=== PATIENT | male | born 1980 | race Caucasian/White ===

== ENCOUNTER 2018-12-12 16:31 | Emergency (ER) | payer OTHER ==
[2018-12-12] MEDS ORDERED: DIPH/PERTUSS(ACELL)/TETANUS VAC/PF 0.5 ML SYR (>=10YO) IM ONE (17:10)
[2018-12-12] MEDS ORDERED: LIDOCAINE 1% INJ-PF (10 MG/ML) 30 ML SDV INJ ONE (17:10)
--- NOTE | 2018-12-12 17:16 | ER Document Report ---
ED General - General Chief Complaint: Laceration Stated Complaint: THUMB LACERATION Time Seen by Provider: 12/12/18 17:01 Mode of Arrival: Ambulatory Information source: Patient TRAVEL OUTSIDE OF THE [place] IN LAST 30 DAYS: No - HPI Patient complains to provider of: Left thumb laceration Onset: Just prior to arrival Onset/Duration: Sudden Quality of pain: Sharp Severity: Mild Pain Level: 2 Context: Cut self to left thumb with a one-handed axe Associated symptoms: None Exacerbated by: Denies Relieved by: Denies Similar symptoms previously: No Recently seen / treated by doctor: No Notes: The injury was noted to be more of a slice injury and not necessarily a crushing injury from the axe. Therefore x-rays not ordered - Related Data Allergies/Adverse Reactions: No Known Allergies Allergy (Unverified 12/12/18 16:31) Past Medical History - General Information source: Patient - Social History Smoking Status: Current Every Day Smoker Family History: Reviewed & Not Pertinent Patient has suicidal ideation: No Patient has homicidal ideation: No Renal/ Medical History: Denies: Hx Peritoneal Dialysis Review of Systems - Review of Systems Notes: Constitutional: No fevers. No chills. EENT: No eye redness. No eye pain. No ear pain. No sore throat. Cardiovascular: No chest pain. No palpitations. Respiratory: No cough. No shortness of breath. No respiratory distress. Gastrointestinal: No abdominal pain. No nausea, vomiting, or diarrhea. Genitourinary: Atraumatic. No lesions. No pain. No discharge. Musculoskeletal: Atraumatic. No swelling. No deformities. Left thumb laceration Skin: No rash or lesions. Lymphatic: No swollen lymph nodes. Neurologic: No headache. No syncope. Psychiatric: No suicidal or homicidal ideation. Physical Exam - Vital signs Vitals: Temp Pulse Resp BP Pulse Ox 98.0 F 57 L 16 125/70 98 12/12/18 16:35 12/12/18 16:35 12/12/18 16:35 12/12/18 16:35 12/12/18 16:35 - Notes Notes: General: Well-developed, well-nourished. In no acute distress. Non-toxic ap pearing. Cardiac: Well-perfused. Regular rate and rhythm. No murmurs, rubs, or gallops. Pulmonary: No respiratory distress. No cyanosis. Bilateral lung fiels are clear to auscultation. Abdominal: Non-distended. Non-rigid. Bowels sounds are present in all four quadrants. No guarding or rebound. HEENT: Head is atraumatic. Conjunctivae not reddened. No tearing. PERRL. EOMI. Orbits atraumatic. No periorbital swelling or erythema. Oropharynx is without erythema, swelling, or exudates. Neck: Supple. No adenopathy. No meningismus. Dermatologic: Warm with good turgor. No rash. Atraumatic. Chest: Atraumatic. No chest wall tenderness to palpation. Musculoskeletal: Moves all extremities well. No range of motion deficits. no muscular or joint tenderness. No paraspinal muscle tenderness. no midline spinal tenderness or step-off. There is a 1 cm laceration just lateral to the cuticle of the left thumb. No active bleeding but visibly dirty Genitourinary: Examination deferred Neurologic: No gross neurologic deficits. Psychiatric: Normal mood. Course - Re-evaluation Re-evalutation: 12/12/18 17:14 Wound is not large but probably has a propensity to bleed. Also the patient feels like it is very dirty because of what he was chopping up with the next. Last Tdap is unknown so we will update it today. - Vital Signs Vital signs: Temp Pulse Resp BP Pulse Ox 98.0 F 57 L 16 125/70 98 12/12/18 16:35 12/12/18 16:35 12/12/18 16:35 12/12/18 16:35 12/12/18 16:35 Procedures - Laceration/Wound Repair Left thumb laceration Time completed: 17:36 Wound length (cm): 1 Wound's Depth, Shape: Superficial Laceration pre-procedure: Sterile PPE donned, Sterile drapes applied, Shur-Clens applied Anesthetic type: 1% Lidocaine Volume Anesthetic (mLs): 3 Wound explored: Contaminated Wound Debrided: Minimal Wound Repaired With: Sutures Suture Size/Type: 5:0, Prolene Number of Sutures: 3 Layer Closure?: No Post-procedure NV exam normal: Yes Complications: No Notes: 12/12/18 17:36 Tolerated well Discharge - Discharge Clinical Impression: Thumb laceration Qualifiers: Encounter type: initial encounter Damage to nail status: without damage Foreign body presence: without foreign body Laterality: left Qualified Code(s): S61.012A - Laceration without foreign body of left thumb without damage to nail, initial encounter Condition: Good Disposition: HOME, SELF-CARE Instructions: Antibiotic Ointment Protection (OM), Laceration Care (OM), Soap Cleansing (OM), Tetanus Immunization Given ([facility]) Additional Instructions: Clean with soap and water. Avoid hydrogen peroxide. Daily dressing changes with or without antibiotic ointment. 10 days to have the sutures removed Referrals: primary care, your [Other] - Follow up as needed
[2018-12-12 18:00] VITALS: BP 117/73
== END 2018-12-12 17:58 | disposition home or self-care (01) ==
LOC: ER 16:31
DX: S61.019A Laceration without foreign body of unspecified thumb without damage to nail, initial encounter (principal); S61.012A Laceration without foreign body of left thumb without damage to nail, initial encounter; W27.0XXA Contact with workbench tool, initial encounter; F17.200 Nicotine dependence, unspecified, uncomplicated; Z23 Encounter for immunization
CPT/HCPCS: 99282; 90471; 90715; 12001; J3490

== ENCOUNTER 2019-01-21 22:09 | Emergency (ER) | payer OTHER ==
[2019-01-21 22:17] VITALS: BP 139/73
[2019-01-21] MEDS ORDERED: ACETAMINOPHEN 325 MG TABLET PO ONE (22:17)
[2019-01-22] MEDS ORDERED: DEXAMETHASONE SOD PHOS INJ 10 MG/1 ML VIAL IM ONE (00:12)
[2019-01-22] MEDS ORDERED: PENICILLIN G BENZATHINE 1.2 MILLION UNIT/2 ML DISP.SYRIN IM ONE (00:12)
--- NOTE | 2019-01-22 00:17 | ER Document Report ---
ED Medical Screen (RME) - General Chief Complaint: Fever Stated Complaint: FEVER Time Seen by Provider: 01/22/19 00:09 Primary Care Provider: CARLI PLAZA [Primary Care Provider] - Follow up as needed Notes: Patient is a 38-year-old male that comes to the department for chief complaint of sore throat, swollen lymph nodes in the front of his neck, and a fever with body aches since yesterday. He states he has had strep in the past, this feels the same. He denies abdominal pain, vomiting, chest pain, cough, congestion. TRAVEL OUTSIDE OF THE [place] IN LAST 30 DAYS: No - Related Data Allergies/Adverse Reactions: No Known Allergies Allergy (Unverified 12/12/18 16:31) Past Medical History - General Information source: Patient - Social History Frequency of alcohol use: None Drug Abuse: None Lives with: Family Family history: Reviewed & Not Pertinent - Medical History Medical History: Negative Renal/ Medical History: Denies: Hx Peritoneal Dialysis Surgical Hx: Negative - Immunizations Immunizations up to date: Yes Hx Diphtheria, Pertussis, Tetanus Vaccination: Yes Review of Systems - Review of Systems Constitutional: See HPI EENT: See HPI Cardiovascular: No symptoms reported Respiratory: No symptoms reported Gastrointestinal: No symptoms reported Genitourinary: No symptoms reported Male Genitourinary: No symptoms reported Musculoskeletal: No symptoms reported Skin: No symptoms reported Hematologic/Lymphatic: No symptoms reported Neurological/Psychological: No symptoms reported Physical Exam - Vital signs Vitals: Temp Pulse Resp BP Pulse Ox 102.3 F H 90 22 H 139/73 H 96 01/21/19 22:15 01/21/19 22:15 01/21/19 22:15 01/21/19 22:15 01/21/19 22:15 - Notes Notes: GENERAL: Alert, interacts well. No acute distress. HEAD: Normocephalic, atraumatic. EYES: Pupils equal, round, and reactive to light. Extraocular movements intact. ENT: Oral mucosa moist, tongue midline. Exudative pharyngitis bilaterally noted, uvula normal, airway patent. Nares patent, no nasal septal hematoma, TM's intact. NECK: Full range of motion. Supple. Trachea midline. Bilateral anterior cervical adenopathy without submandibular swelling LUNGS: Clear to auscultation bilaterally, no wheezes, rales, or rhonchi. No respiratory distress. HEART: Regular rate and rhythm. No murmur ABDOMEN: Soft, non-tender. Non-distended. Bowel sounds present in all 4 quadrants. GENITOURINARY: Deferred EXTREMITIES: Moves all 4 extremities spontaneously. No edema, normal radial and dorsalis pedis pulses bilaterally. No cyanosis. BACK: no cervical, thoracic, lumbar midline tenderness. No saddle anesthesia, normal distal neurovascular exam. NEUROLOGICAL: Alert and oriented x3. Normal speech. . PSYCH: Normal affect, normal mood. SKIN: Warm, dry, normal turgor. No rashes or lesions noted. Course - Re-evaluation Re-evalutation: Patient is actually alert and well-appearing. History of strep multiple times in the past, states this feels the same. Patient does have obvious exudative pharyngitis, anterior cervical adenopathy, and he came here with a fever. No cold symptoms. No splenomegaly noted. Strep was actually negative. I discussed this with patient. Patient requests to be treated with penicillin and dexamethasone despite this because of his history and symptoms. I did discuss the possibility that this was viral/mono, I did discuss the precautions in regards to this as well. Patient states understanding and agreement with plan. - Vital Signs Vital signs: Temp Pulse Resp BP Pulse Ox 102.3 F H 90 22 H 139/73 H 96 01/21/19 22:15 01/21/19 22:15 01/21/19 22:15 01/21/19 22:15 01/21/19 22:15 Doctor's Discharge - Discharge Clinical Impression: Exudative pharyngitis, Anterior cervical lymphadenopathy Fever Qualifiers: Fever type: unspecified Qualified Code(s): R50.9 - Fever, unspecified Condition: Stable Disposition: HOME, SELF-CARE Additional Instructions: Your symptoms and evaluation meet criteria for strep throat. You have been treated for this. There is a possibility that this is viral, if it is it may last longer, you may also experience secondary effects such as swelling of the spleen. See mononucleosis directions below. Take Tylenol or ibuprofen for pain, drink plenty fluids, and rest. Follow-up w [facility] primary care. Return for any concerning symptoms. Mononucleosis This is a viral infection which can last several weeks. Typically, a week or two of tiredness precedes a sore throat, swollen glands, fever, and aches. Sometimes there's a rash. In severe cases, swollen spleen and liver develop. There is no cure for mononucleosis. You should rest, drink plenty of fluids, and avoid contact sports until you are better. A follow-up examination is usually done in about a week. Further laboratory testing may be necessary then. See the doctor if there is significant worsening of the symptoms or onset of new symptoms such as severe headache, stiff neck, generalized or severe abdominal pain, or faintness. Referrals: [facility] [Primary [facility] Provider] - Follow up as needed
== END 2019-01-22 00:50 | disposition home or self-care (01) ==
LOC: ER 22:09
DX: J02.9 Acute pharyngitis, unspecified (principal); R59.0 Localized enlarged lymph nodes; R50.9 Fever, unspecified; M54.2 Cervicalgia; M79.10 Myalgia, unspecified site
CPT/HCPCS: 99283; 96372; 87070; 87880; 87077; J0561; J1100

== ENCOUNTER 2020-05-24 10:48 | Emergency (ER) | payer OTHER ==
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
--- NOTE | 2020-05-24 12:05 | RADIOLOGY REPORT (SQ) ---
EXAM DESCRIPTION: HAND RIGHT 3 VIEWS IMAGES COMPLETED DATE/TIME: 05/24/2020 11:42 am REASON FOR STUDY: broke hand 3 weeks ago COMPARISON: None. EXAM PARAMETERS: NUMBER OF VIEWS: Three views. TECHNIQUE: AP, lateral and oblique radiographic images acquired of the right hand. LIMITATIONS: None. FINDINGS: MINERALIZATION: Normal. BONES: Nondisplaced intra-articular fracture head of 2nd metacarpal. JOINTS: Intact. SOFT TISSUES: No foreign body. OTHER: No other significant finding. IMPRESSION: Fracture head 2nd metacarpal. TECHNICAL DOCUMENTATION: JOB ID: [id number] 2010 [employer]- All Rights Reserved Reading location - IP/workstation name: [email or web address]
[2020-05-24 12:40] VITALS: BP 116/66
== END 2020-05-24 12:40 | disposition home or self-care (01) ==
LOC: ER 10:48
DX: S62.390A Other fracture of second metacarpal bone, right hand, initial encounter for closed fracture (principal); Y09 Assault by unspecified means; F17.200 Nicotine dependence, unspecified, uncomplicated
CPT/HCPCS: 99283